=== PATIENT | male | born 1950 | race Asian ===

== ENCOUNTER 2024-07-10 20:42 | Emergency (ER) | payer OTHER, SELFPAY ==
[2024-07-10 20:44] VITALS: BP 177/90
--- NOTE | 2024-07-10 21:22 | ED.GENMED ---
History of Present Illness
General
Chief Complaint: Weakness
Time Seen by Provider: 07/10/24 21:21
History of Present Illness
History of Present Illness:
TIME OF INITIAL ENCOUNTER: 9:20 PM
HPI: Patient came in due to concerns of generalized weakness. This acutely worsened this evening at an event. However earlier in the week he has had poor p.o. intake and reports a 10 pound weight loss. He saw his primary care doctor and is
scheduled to have a CAT scan of his chest abdomen pelvis at [place] tomorrow. He reports no significant pain. He has had no diarrhea. He has not been vomiting.
EXAM:
GENERAL: Well appearing in no distress but appears somewhat weak
HEENT: Moist oral mucosa
CARDIOVASCULAR: No murmurs, tachycardic heart rate, regular rhythm, No chest wall tenderness
PULMONARY: No respiratory distress, breath sounds are clear and equal
ABDOMEN: Soft with no peritoneal signs, no tenderness
NEUROLOGIC: Excellent strength all extremities, no coordination deficits
PSYCHIATRIC: Appropriate mental status, normal insight and judgement
EXTREMITIES: Nontender, no edema, moves all extremities equally
SKIN: No rash, no lesions
NUMBER AND COMPLEXITY OF PROBLEMS ADDRESSED AT THE ENCOUNTER
� Chronic conditions affecting care: High blood pressure, high cholesterol
� Acute Exacerbation and/or Progression of Chronic Illness: This is an acute problem
� Differential Diagnosis includes: Nonspecific weakness, failure to thrive, anorexia, STERLING, dehydration
AMOUNT AND/OR COMPLEXITY OF DATA TO BE REVIEWED AND ANALYZED
� I performed an independent evaluation of and my interpretation is:
EKG: Sinus 108, left axis deviation, some baseline artifact no old to compare
CT:
X-rays:
Laboratory Studies: White count normal, hemoglobin 12.5, chemistries unremarkable, TSH is less than 0.02, free T4 4.64
Other:
� Review of other/old records: No old records available for review
� Clinical information was obtained by an independent historian: Spoke to the sons at bedside
� Prescriptions/Medications Considered but not given:
� Further testing considered but not performed:
RISK OF COMPLICATIONS AND/OR MORBIDITY OR MORTALITY OF PATIENT MANAGEMENT
� Social determinants of health affecting care: Lives at home
� Discussion with other providers:
� Escalation of care including admission/observation vs risk of discharge considered: As patient arrived tachycardic with weight loss, along with poor p.o. intake, IV fluids
ANY OTHER UPDATES:
11:30 PM: I reassessed patient. The patient did report weight loss and has been tachycardic and a general unwell feeling. Workup is consistent with hyperthyroidism. I have placed him on methimazole and he is to follow with primary care doctor and
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
Phy Exam
Physical Exam
Physical Exam:
See HPI
Course
Orders/Labs/Results
Orders:
Orders
07/10/24 20:47
EKG [Electrocardiogram (*1)] Urgent
Reason for Study: Tachycardia
07/10/24 20:48
EKG- Treatment ONCE
07/10/24 21:22
0.9% Sodium Chloride 1000 ml [Nss] 1,000 ml IV BOLUS
07/10/24 21:35
Complete Blood Count/With Diff Urgent
Comprehensive Metabolic Panel Urgent
Free T4 Urgent
TSH Reflex To Free T4 Urgent
Abnormal Lab Results
07/10/24
21:35
RBC 4.48 L 10^6/uL
(4.70-6.10)
Hgb 12.5 L g/dL
(13.0-18.0)
MCHC 31.6 L g/dL
(33.0-37.0)
Absolute Monos (auto) 0.8 H 10^3/uL
(0.1-0.6)
Absolute Eos (auto) 0.8 H 10^3/uL
(0-0.7)
Lymphocytes % 20.1 L %
(20.5-51.1)
Monocytes % 11.8 H %
(1.7-9.3)
Eosinophils % 11.8 H %
(0-6)
Glucose 115 H mg/dl
(70-99)
TSH (Reflex) < 0.02 L uIU/ml
(0.47-4.68)
Free T4 4.64 H ng/dl
(0.78-2.19)
07/10/24 21:35
07/10/24 21:35
Vital Signs
Initial and Last Documented VS:
Initial Vital Signs
Pulse Resp BP Pulse Ox
121 17 177/90 99
07/10/24 20:44 07/10/24 20:44 07/10/24 20:44 07/10/24 20:44
Last Documented Vital Signs
Temp Pulse Resp BP Pulse Ox
97.9 F 99 18 133/75 99
07/10/24 23:27 07/10/24 22:17 07/10/24 22:17 07/10/24 22:17 07/10/24 22:17
*Critical Care Note
Total Time (30-74mins, 75-104mins- exclusive of procedures): Not Applicable
ED Attending Note
-
Portions of this chart may have been created with voice recognition software.� Occasional wrong word or��sound alike� substitutions may have occurred due to the inherent limitations of voice recognition software.
Discharge Plan
Departure
Patient Disposition: Home (Routine Discharge)
Date of Disposition: 07/10/24
Time of Disposition: 23:25
Patient with high blood pressure during this ER visit?: Yes
Discharge Problem:
Hyperthyroidism
Instructions: Hyperthyroidism (overactive thyroid)
Prescriptions:
New
methimazole 5 mg tablet
5 mg PO TID Qty: 90 0RF
Referrals:
Lis Doherty MD [Consulting Staff] - Next open appointment
Maurilio Acuna MD [Family Provider] -
Activity Restrictions/Additional Instructions:
Your blood work shows that you are hyperthyroid. I have placed you on medicine which may help your symptoms. The rest of your blood work is unremarkable. Follow-up your primary care doctor and I have also given the contact information for local
forestry supervisor.
Interventions
Interventions:
*Risk Screen - Suicide Last Done: 07/10/24 20:44
*General Assessment Last Done: 07/10/24 20:44
*Neglect/Abuse Screening Last Done: 07/10/24 20:44
*ED COVID-19 Vaccine History Last Done: 07/10/24 20:47
ED- Cardiac Assessment Last Done: 07/10/24 22:18
ED- Neurological Assessment Last Done: 07/10/24 22:18
ED- Pulmonary Assessment Last Done: 07/10/24 22:18
Discharge Date and Time
Print Language: CITIZEN OF [place]
[2024-07-10] MEDS: NSS 1000 IV (21:36)
[2024-07-10 21:47] LABS: % Basophils 0.5 % (0-2); % Eosinophils 11.8 % (0-6); % Immature Granulocytes 0.3 % (0-0.5); % Lymphocytes 20.1 % (20.5-51.1); % Monocytes 11.8 % (1.7-9.3); % Neutrophils 55.5 % (42.2-75.2); Absolute Eosinophils 0.8 10^3/uL (0-0.7); Absolute Lymphocytes 1.3 10^3/uL (1.2-3.4); Absolute Monocytes 0.8 10^3/uL (0.1-0.6); Absolute Neutrophils 3.6 10^3/uL (1.4-6.5); Hematocrit 39.6 % (39.0-52.0); Hemoglobin 12.5 g/dL (13.0-18.0); Mean Corp Hgb Conc. 31.6 g/dL (33.0-37.0); Mean Corpuscular Hgb 27.9 pg (27.0-31.0); Mean Corpuscular Volume 88.4 fL (80.0-94.0); Mean Platelet Volume 9.6 fL (7.4-10.4); Nucleated Red Blood Cells % 0 % (-); Platelet Count 221 10^3/uL (130-400); Red Blood Cell Count 4.48 10^6/uL (4.70-6.10); Red Cell Dist. Width 12.2 % (11.5-14.5); White Blood Cell Count 6.4 10^3/uL (4.8-10.8)
[2024-07-10 22:04] LABS: ALT (SGPT) 45 U/L (0-50); AST (SGOT) 41 U/L (17-59); Albumin 3.8 g/dl (3.5-5.0); Alkaline Phosphatase 46 U/L (38-126); Blood Urea Nitrogen 15 mg/dl (9-20); Calcium 9.5 mg/dl (8.4-10.2); Carbon Dioxide 27 mmol/L (22-30); Chloride 104 mmol/L (98-107); Glucose 115 mg/dl (70-99); Potassium 4.8 mmol/L (3.5-5.1); Sodium 139 mmol/L (135-145); Total Bilirubin 0.5 mg/dl (0.2-1.3); Total Protein 6.5 g/dl (6.3-8.2); eGFR > 60.00
[2024-07-10 22:17] VITALS: BP 133/75
[2024-07-10 22:45] LABS: TSH Reflex To Free T4 < 0.02 uIU/ml (0.47-4.68)
[2024-07-10 23:14] LABS: Free T4 4.64 ng/dl (0.78-2.19)
== END 2024-07-10 23:51 | disposition home or self-care (01) ==
LOC: EMR 20:42
PROVIDERS: EMERGENCY PHYSICIAN Emergency Medicine; FAMILY PHYSICIAN Family Medicine
DX: E05.90 Thyrotoxicosis, unspecified without thyrotoxic crisis or storm (principal)
CPT/HCPCS: 99283; 80053; 84439; 84443; 85025; 93005

== ENCOUNTER 2025-01-27 13:58 | Emergency (ER) | payer OTHER, SELFPAY ==
[2025-01-27] VITALS (7 sets, daily range): BP systolic 112–152; BP diastolic 74–87
[2025-01-27 14:26] LABS: Urine Albumin Negative (Neg - Trace); Urine Bilirubin Negative (Negative); Urine Character Clear (Clear); Urine Color Yellow; Urine Glucose Negative (Negative); Urine Ketone Negative (Negative); Urine Leukocyte Negative (Negative); Urine Nitrite Negative (Negative); Urine Occult Blood Negative (Negative); Urine Specific Gravity 1.015 (<1.030); Urine Urobilinogen Negative (Neg - 1+)
--- NOTE | 2025-01-27 14:48 | ED.GENMED ---
History of Present Illness
General
Chief Complaint: Change in Mental Status
Source: patient and family
Exam Limitations: none
Time Seen by Provider: 01/27/25 14:15
Nursing documentation reviewed up to this point in time: agreed with
History of Present Illness
History of Present Illness:
Patient with history of hypertension and recently diagnosed hyper thyroidism, currently taking methimazole, presents to ED secondary to 1 month history of increased anxiety and depression, associated with hallucination and suicidal thoughts. There
has also been increased level of confusion with repetitive questioning. Otherwise, patient himself has no complaints of physically. Denies recent illness. Denies fever or chills. Denies loss of appetite. Denies coughing. Denies vomiting or
diarrhea. Denies inability to sleep. Per family, his increased level of anxiety and hallucination appears to be more prevalent at nighttime.
Review of Systems
Review of Systems
Allergies reviewed?: Yes
All Other Systems: ROS reviewed and negative except as documented in HPI and ROS
Constitutional: Reports no symptoms
Respiratory: Reports no symptoms
Cardiac: Reports no symptoms
ABD/GI: Reports no symptoms
Musculoskeletal: Reports no symptoms
Skin: Reports no symptoms
Neurological: Reports no symptoms
Psychiatric: Reports depression, anxiety, suicidal and hallucinations
Phy Exam
Physical Exam
Physical Exam:
Physical Exam
General: no apparent distress, not acutely ill. afebrile
Head: nc/at. eomi
Neck: supple. no meningeal signs.
Heart: s1/s2 regular rate and rhythm
Lungs: no acute respiratory distress. clear bilaterally
Abdomen: normal bowel sounds. not tender.
Neuro: alert and oriented x 3. no focal neurological deficits
Skin: no rash
Psychiatric: well kept. interactive and cooperative
Extremities: no edema. no calf tenderness.
Course
Orders/Labs/Results
Orders:
Orders
01/27/25 14:18
Urinalysis Reflex To Culture Urgent
Date Specimen was Collected: 01/27/25
Time Specimen was Collected: 14:08
Urine Drug Abuse Screen Urgent
Date Specimen was Collected: 01/27/25
Time Specimen was Collected: 14:08
01/27/25 14:43
Crisis Consult Urgent
Reason for Consult: SI
01/27/25 14:44
CT Head W/o Iv Contrast Urgent
Comment:
Reason For Exam: mental status change
01/27/25 15:06
CMP [Comprehensive Metabolic Panel] Urgent
Complete Blood Count/With Diff Urgent
TSH Reflex To Free T4 Urgent
01/27/25 20:21
Lorazepam [Ativan] 0.5 mg PO NOW STA
Abnormal Lab Results
01/27/25
15:06
RBC 4.39 L 10^6/uL
(4.70-6.10)
Absolute Lymphs (auto) 1.1 L 10^3/uL
(1.2-3.4)
Lymphocytes % 16.0 L %
(20.5-51.1)
Eosinophils % 7.5 H %
(0-6)
Chloride 108 H mmol/L
(98-107)
Glucose 150 H mg/dl
(70-99)
01/27/25 15:06
01/27/25 15:06
Vital Signs
Initial and Last Documented VS:
Initial Vital Signs
Temp Pulse Resp BP Pulse Ox
98.1 F 96 16 152/82 100
01/27/25 14:01 01/27/25 14:01 01/27/25 14:01 01/27/25 14:01 01/27/25 14:01
Last Documented Vital Signs
Temp Pulse Resp BP Pulse Ox
98.1 F 85 18 124/83 98
01/27/25 14:01 01/27/25 20:37 01/27/25 20:37 01/27/25 19:00 01/27/25 20:37
MDM/Problems Addressed
MDM/Problems Addressed:
Patient with an unremarkable workup in ED, including blood work and CT head. Patient evaluated by telepsychiatry with recommendation including inpatient psychiatric admission/treatment, discussed with patient, spouse and his son, who lives in the
same household. At this time, patient and family both feel comfortable going home with recommendation to start sertraline and Abilify, as well as outpatient evaluation/treatment. No indication for any suicidal thoughts at this time. As such, I
believe it is reasonable to discharge patient home, to the care of his family who will observe him carefully at home. Will return to ED with worsening symptoms.
*Critical Care Note
Total Time (30-74mins, 75-104mins- exclusive of procedures): Not Applicable
ED Attending Note
-
Portions of this chart may have been created with voice recognition software.� Occasional wrong word or��sound alike� substitutions may have occurred due to the inherent limitations of voice recognition software.
Discharge Plan
Departure
Patient Disposition: Home (Routine Discharge)
Date of Disposition: 01/27/25
Time of Disposition: 20:21
Patient with high blood pressure during this ER visit?: Yes
Discharge Problem:
Depression
Instructions: Depression in adults - ED discharge instructions
Prescriptions:
New
sertraline 50 mg tablet
50 mg PO DAILY Qty: 30 0RF
aripiprazole [Abilify] 2 mg tablet
2 mg PO HS Qty: 30 0RF
No Action
methimazole 5 mg tablet
5 mg PO TID Qty: 90 0RF
Referrals:
Maurilio Acuna MD [Family Provider, Family Practice]
Activity Restrictions/Additional Instructions:
As discussed, please follow-up with your primary care physician as well as provided outpatient resources for further evaluation and treatment. Your prescriptions have been sent electronically to [facility] pharmacy in [place].
Interventions
Interventions:
*Risk Screen - Suicide Last Done: 01/27/25 14:01
*General Assessment Last Done: 01/27/25 15:09
*Neglect/Abuse Screening Last Done: 01/27/25 14:01
*ED- Fall Risk Assessment Last Done: 01/27/25 15:09
*ED COVID-19 Vaccine History Last Done: 01/27/25 15:09
*Nursing Disposition Last Done: 01/27/25 20:37
ED-Psychological Assessment Last Done: 01/27/25 14:44
ED- Neurological Assessment Last Done: 01/27/25 14:44
ED- Cardiac Assessment Last Done: 01/27/25 14:44
ED Swallowing Screen Last Done: 01/27/25 20:31
Discharge Date and Time
Discharge Date/Time: 01/27/25 20:38
Print Language: LAT[place]
[2025-01-27 14:58] LABS: Amphetamines Negative (Negative); Barbiturates Negative (Negative); Benzodiazepines Negative (Negative); Buprenorphine Negative (Negative); Cocaine Negative (Negative); Marijuana Negative (Negative); Methadone Negative (Negative); Methamphetamines Negative (Negative); Opiates Negative (Negative); Phencyclidine Negative (Negative); Tricyclic Antidepressants Negative (Negative)
[2025-01-27 15:24] LABS: % Eosinophils 7.5 % (0-6); % Immature Granulocytes 0.3 % (0-0.5); % Monocytes 6.7 % (1.7-9.3); % Neutrophils 68.5 % (42.2-75.2); Absolute Basophils 0.1 10^3/uL (0-0.2); Absolute Eosinophils 0.5 10^3/uL (0-0.7); Absolute Lymphocytes 1.1 10^3/uL (1.2-3.4); Absolute Monocytes 0.5 10^3/uL (0.1-0.6); Absolute Neutrophils 4.8 10^3/uL (1.4-6.5); Hematocrit 39.7 % (39.0-52.0); Hemoglobin 13.2 g/dL (13.0-18.0); Mean Corp Hgb Conc. 33.2 g/dL (33.0-37.0); Mean Corpuscular Hgb 30.1 pg (27.0-31.0); Mean Corpuscular Volume 90.4 fL (80.0-94.0); Mean Platelet Volume 9.2 fL (7.4-10.4); Nucleated Red Blood Cells % 0 % (-); Platelet Count 229 10^3/uL (130-400); Red Blood Cell Count 4.39 10^6/uL (4.70-6.10); Red Cell Dist. Width 12.4 % (11.5-14.5); White Blood Cell Count 7.1 10^3/uL (4.8-10.8)
[2025-01-27 15:37] LABS: ALT (SGPT) 15 U/L (0-50); AST (SGOT) 19 U/L (17-59); Albumin 4.3 g/dl (3.5-5.0); Alkaline Phosphatase 68 U/L (38-126); Blood Urea Nitrogen 9 mg/dl (9-20); Calcium 9.7 mg/dl (8.4-10.2); Carbon Dioxide 28 mmol/L (22-30); Chloride 108 mmol/L (98-107); Glucose 150 mg/dl (70-99); Potassium 4.7 mmol/L (3.5-5.1); Sodium 142 mmol/L (135-145); Total Bilirubin 0.7 mg/dl (0.2-1.3); eGFR > 60.00
[2025-01-27 16:07] LABS: TSH Reflex To Free T4 1.13 uIU/ml (0.47-4.68)
[2025-01-27] MEDS: ATIVAN 0.5 MG PO (20:32)
== END 2025-01-27 20:38 | disposition home or self-care (01) ==
LOC: EMR 13:58
PROVIDERS: Emergency Medicine; EMERGENCY PHYSICIAN Emergency Medicine; FAMILY PHYSICIAN Family Medicine
DX: F32.A Depression, unspecified (principal); I10 Essential (primary) hypertension
CPT/HCPCS: 99284; 70450; 80053; 80306; 81003; 84443; 85025